=== PATIENT | female | born 2000 | race Caucasian/White ===

== ENCOUNTER 2022-07-25 14:41 | Emergency (ER) | payer OTHER ==
[2022-07-25] MEDS ORDERED: Morphine 2 MG/ML VIAL ONE (15:48)
[2022-07-25] MEDS ORDERED: Ondansetron PF 4 MG/2 ML Vial ONE (15:48)
[2022-07-25] MEDS ORDERED: Boostrix 0.5 ML (Tdap) VIAL (>/=7 yrs of age) ONE (15:54)
[2022-07-25] MEDS ORDERED: Bupivacaine 0.25% 10 ML VIAL ONE (16:59)
== END 2022-07-25 17:38 | disposition home or self-care (01) ==
LOC: EDUNIT# 14:41 → ERS 14:41
DX: S02.2XXA Fracture of nasal bones, initial encounter for closed fracture (principal); S40.022A Contusion of left upper arm, initial encounter; V89.2XXA Person injured in unspecified motor-vehicle accident, traffic, initial encounter; Y92.410 Unspecified street and highway as the place of occurrence of the external cause
CPT/HCPCS: 12013; 70486; 72050; 90471; 90715; 96374; 96375; G0390; J2272; J2405; S0020